=== PATIENT | male | born 1995 | race Caucasian/White ===

== ENCOUNTER 2018-09-09 10:56 | Emergency (ER) | payer OTHER ==
--- NOTE | 2018-09-09 11:27 | ERPHSYRPT ---
- History of Present Illness Time Seen by Provider: 09/09/18 11:23 Source: patient, police Exam Limitations: no limitations Patient Subjective Stated Complaint: suicidal Triage Nursing Assessment: Pt stated that he got into an argument with his girlfriend this morning and then was talking to his brother and stated that he wanted to kill his self, pt states that he feels this way anytime he gets angry , when he is calmed down he then thinks of ways of doing this although he has never acted upon it, he wishes to speak to a counselor, pt it disshevled, reports that he has quit drinking and that he doesn't do any drugs, pt is very cooperative and flat, vitals wnl, denies having any other issues Physician History: 23-year-old white male brought by [employer] with complaint of the patient apparently has been talking about harming himself. Patient apparently got in an argument with his girlfriend today and told his brother he wanted to harm himself he apparently has been thinking about harming himself off and on for some time he states he gets angry and even thinks about harming himself, Patient apparently thinks about harming himself while he is angry and then when he calms down he thinks about different ways she might harm himself. He states he's never attempted suicide in the past. Past medical history includes epilepsy as a child. Past surgical history includes myringotomy tubes. Social history is positive for tobacco use patient denies alcohol or illicit drug use. Timing/Duration: today Severity: moderate Modifying Factors: Improves With: other (patient an argument with girlfriend earlier) Associated Symptoms: No nausea, No vomiting, No abdominal pain, No shortness of breath, No heartburn, No diaphoresis, No cough, No chills, No chest pain, No fever, No headaches, No loss of appetite, No malaise, No rash, No syncope, No seizure, No weakness Allergies/Adverse Reactions: No Known Drug Allergies Allergy (Verified 09/09/18 11:12) Home Medications: No Reportable Medications [No Reported Medications] 09/09/18 [History] - Review of Systems Constitutional: No Fever, No Chills Eyes: No Symptoms Ears, Nose, & Throat: No Symptoms Respiratory: No Cough, No Dyspnea Cardiac: No Chest Pain, No Edema, No Syncope Abdominal/Gastrointestinal: No Abdominal Pain, No Nausea, No Vomiting, No Diarrhea Genitourinary Symptoms: No Dysuria Musculoskeletal: No Back Pain, No Neck Pain Skin: No Rash Neurological: No Dizziness, No Focal Weakness, No Sensory Changes Psychological: Suicidal Ideations, Emotional Lability, No Alcohol Abuse, No Drug Abuse, No Anxiety, No Homicidal Ideations, No Hallucinations, No Memory Loss, No Mood Changes Endocrine: No Symptoms All Other Systems: Reviewed and Negative - Past Medical History Pertinent Past Medical History: Yes Neurological History: Epilepsy Other Medical History: epilepsy as a child - Past Surgical History Past Surgical History: Yes Other Surgical History: tubes in ears - Social History Smoking Status: Current every day smoker How long have you smoked: 6 years Exposure to second hand smoke: Yes Drug Use: none Patient Lives Alone: No - Nursing Vital Signs Nursing Vital Signs: Initial Vital Signs Temperature 97.6 F 09/09/18 10:57 Pulse Rate 73 09/09/18 10:57 Respiratory Rate 12 09/09/18 10:57 Blood Pressure 134/84 09/09/18 10:57 O2 Sat by Pulse Oximetry 100 09/09/18 10:57 Pain Scale Pain Intensity 0 - Physical Exam General Appearance: no apparent distress, alert Eye Exam: PERRL/EOMI, eyes nml inspection Ears, Nose, Throat Exam: normal ENT inspection, TMs normal, pharynx normal, moist mucous membranes Neck Exam: normal inspection, non-tender, supple, full range of motion Respiratory Exam: normal breath sounds, lungs clear, No respiratory distress Cardiovascular Exam: regular rate/rhythm, normal heart sounds, normal peripheral pulses, capillary refill <2 sec Gastrointestinal/Abdomen Exam: soft, normal bowel sounds, No tenderness, No mass Back Exam: normal inspection, normal range of motion, No CVA tenderness, No vertebral tenderness Extremity Exam: normal inspection, normal range of motion, pelvis stable Neurologic Exam: alert, oriented x 3, cooperative, clarifier II-XII nml as tested, normal mood/affect, nml cerebellar function, nml station & gait, sensation nml, No motor deficits Skin Exam: normal color, warm, dry, No rash Lymphatic Exam: No adenopathy SpO2 Interpretation: normal (100%) SpO2: 100 - Course Nursing assessment & vital signs reviewed: Yes EKG Interpreted by Me: RATE (53 bpm), Sinus Rhythm, NORMAL AXIS, Other (EKG: Sinus rhythm., 53 bpm, normal axis, no acute ST or T wave changes, normal EKG) Ordered Tests: Active Orders 24 hr Category Date Time Status EKG-ER Only STAT Care 09/09/18 11:21 Active Psychiatric Consult STAT Cons 09/09/18 11:22 Active ACETAMINOPHEN Stat Lab 09/09/18 11:33 Completed CBC W DIFF Stat Lab 09/09/18 11:33 Completed CMP Stat Lab 09/09/18 11:33 Completed ETHYL ALCOHOL Stat Lab 09/09/18 11:33 Completed SALICYLATE Stat Lab 09/09/18 11:33 Completed UA W/RFX UR CULTURE Stat Lab 09/09/18 12:53 Completed Urine Triage Profile Stat Lab 09/09/18 12:53 Completed Medication Summary Discontinued Medications Generic Name Dose Route Start Last Admin Trade Name Freq PRN Reason Stop Dose Admin Nicotine 21 mg 09/09/18 17:30 09/09/18 17:34 Nicoderm Cq 21 Mg TOP 09/09/18 17:31 21 mg STAT ONE Administration Lab/Rad Data: Laboratory Result Diagrams 09/09/18 11:33 09/09/18 11:33 Laboratory Results 09/09/18 09/09/18 09/09/18 Range/Units 12:53 12:53 11:33 WBC (4.0-10.5) K/mm3 RBC (4.1-5.6) M/mm3 Hgb (12.5-18.0) gm/dl Hct (42-50) % MCV (78-100) fl MCH (26-32) pg MCHC (32-36) g/dl RDW (11.5-14.0) % Plt Count (150-450) K/mm3 MPV (6-9.5) fl Gran % (36.0-66.0) % Eos # (Auto) (0-0.5) Absolute Lymphs (auto) (1.0-4.6) Absolute Monos (auto) (0.0-1.3) Lymphocytes % (24.0-44.0) % Monocytes % (0.0-12.0) % Eosinophils % (0.00-5.0) % Basophils % (0.0-0.4) % Absolute Granulocytes (1.4-6.9) Basophils # (0-0.4) Sodium 142 (137-145) mmol/L Potassium 3.6 (3.5-5.1) mmol/L Chloride 105 (98-107) mmol/L Carbon Dioxide 25 (22-30) mmol/L Anion Gap 15.6 H (5-15) MEQ/L BUN 7 L (9-20) mg/dL Creatinine 0.73 (0.66-1.25) mg/dL Estimated GFR > 60.0 ML/MIN Glucose 118 H (74-106) mg/dL Calcium 9.3 (8.4-10.2) mg/dL Total Bilirubin 0.60 (0.2-1.3) mg/dL AST 20 (17-59) U/L ALT 14 (0-50) U/L Alkaline Phosphatase 64 (38-126) U/L Serum Total Protein 7.7 (6.3-8.2) g/dL Albumin 4.7 (3.5-5.0) g/dL Urine Color YELLOW (YELLOW) Urine Appearance SLIGHTLY CLOUDY (CLEAR) Urine pH 7.0 (5-6) Ur Specific Sumner 1.024 (1.005-1.025) Urine Protein 100 (Negative) Urine Ketones MODERATE (NEGATIVE) Urine Blood NEGATIVE (0-5) Erich/ul Urine Nitrite NEGATIVE (NEGATIVE) Urine Bilirubin NEGATIVE (NEGATIVE) Urine Urobilinogen 4 (0-1) mg/dL Ur Leukocyte Esterase NEGATIVE (NEGATIVE) Urine WBC (Auto) 3-5 (0-5) /HPF Urine RBC (Auto) NONE (0-2) /HPF U Hyaline Cast (Auto) 0-2 (0-2) /LPF U Epithel Cells (Auto) NONE (FEW) /HPF Urine Bacteria (Auto) RARE (NEGATIVE) /HPF Urine Mucus (Auto) MANY (NEGATIVE) /HPF Urine Culture Reflexed NO (NO) Urine Glucose NEGATIVE (NEGATIVE) mg/dL Salicylates < 1.0 L (2-20) mg/dL Urine Opiates Level NEGATIVE (NEGATIVE) Ur Methadone NEGATIVE (NEGATIVE) Acetaminophen < 10 L (10-30) ug/ml Urine Barbiturates NEGATIVE (NEGATIVE) Ur Phencyclidine (PCP) NEGATIVE (NEGATIVE) Urine Amphetamine NEGATIVE (NEGATIVE) U Benzodiazepine Level NEGATIVE (NEGATIVE) Urine Cocaine NEGATIVE (NEGATIVE) Urine Marijuana (THC) NEGATIVE (NEGATIVE) Ethyl Alcohol < 10 (0-10) mg/dL 09/09/18 Range/Units 11:33 WBC 11.4 H (4.0-10.5) K/mm3 RBC 4.52 (4.1-5.6) M/mm3 Hgb 13.8 (12.5-18.0) gm/dl Hct 43.0 (42-50) % MCV 95.1 (78-100) fl MCH 30.5 (26-32) pg MCHC 32.1 (32-36) g/dl RDW 14.7 H (11.5-14.0) % Plt Count 194 (150-450) K/mm3 MPV 11.1 H (6-9.5) fl Gran % 68.8 H (36.0-66.0) % Eos # (Auto) 0.11 (0-0.5) Absolute Lymphs (auto) 2.78 (1.0-4.6) Absolute Monos (auto) 0.61 (0.0-1.3) Lymphocytes % 24.4 (24.0-44.0) % Monocytes % 5.4 (0.0-12.0) % Eosinophils % 1.0 (0.00-5.0) % Basophils % 0.4 (0.0-0.4) % Absolute Granulocytes 7.84 H (1.4-6.9) Basophils # 0.04 (0-0.4) Sodium (137-145) mmol/L Potassium (3.5-5.1) mmol/L Chloride (98-107) mmol/L Carbon Dioxide (22-30) mmol/L Anion Gap (5-15) MEQ/L BUN (9-20) mg/dL Creatinine (0.66-1.25) mg/dL Estimated GFR ML/MIN Glucose (74-106) mg/dL Calcium (8.4-10.2) mg/dL Total Bilirubin (0.2-1.3) mg/dL AST (17-59) U/L ALT (0-50) U/L Alkaline Phosphatase (38-126) U/L Serum Total Protein (6.3-8.2) g/dL Albumin (3.5-5.0) g/dL Urine Color (YELLOW) Urine Appearance (CLEAR) Urine pH (5-6) Ur Specific Sumner (1.005-1.025) Urine Protein (Negative) Urine Ketones (NEGATIVE) Urine Blood (0-5) Erich/ul Urine Nitrite (NEGATIVE) Urine Bilirubin (NEGATIVE) Urine Urobilinogen (0-1) mg/dL Ur Leukocyte Esterase (NEGATIVE) Urine WBC (Auto) (0-5) /HPF Urine RBC (Auto) (0-2) /HPF U Hyaline Cast (Auto) (0-2) /LPF U Epithel Cells (Auto) (FEW) /HPF Urine Bacteria (Auto) (NEGATIVE) /HPF Urine Mucus (Auto) (NEGATIVE) /HPF Urine Culture Reflexed (NO) Urine Glucose (NEGATIVE) mg/dL Salicylates (2-20) mg/dL Urine Opiates Level (NEGATIVE) Ur Methadone (NEGATIVE) Acetaminophen (10-30) ug/ml Urine Barbiturates (NEGATIVE) Ur Phencyclidine (PCP) (NEGATIVE) Urine Amphetamine (NEGATIVE) U Benzodiazepine Level (NEGATIVE) Urine Cocaine (NEGATIVE) Urine Marijuana (THC) (NEGATIVE) Ethyl Alcohol (0-10) mg/dL - Progress Progress: improved Progress Note: 09/09/18 17:38 Patient is interviewed by [facility] personnel. He has been accepted to [facility] as the accepting physician. - Departure Time of Disposition: 17:38 Departure Disposition: Transfer ([facility]) Clinical Impression: Suicidal ideation Condition: Fair Critical Care Time: No
[2018-09-09 11:38] LABS: BASOPHIL % 0.4 % (0.0-0.4); Basophil (Absolute #) 0.04 (0-0.4); Eosinophil (Absolute #) 0.11 (0-0.5); Granulocyte Absolute (ANC) 7.84 (1.4-6.9); Granulocytes % 68.8 % (36.0-66.0); Hemoglobin 13.8 gm/dl (12.5-18.0); Lymphocyte (Absolute #) 2.78 (1.0-4.6); Lymphocytes % 24.4 % (24.0-44.0); Mean Cell Volume 95.1 fl (78-100); Mean Corpuscular Hemoglobin 30.5 pg (26-32); Mean Corpuscular Hgb Concent. 32.1 g/dl (32-36); Mean Platelet Volume 11.1 fl (6-9.5); Monocyte (Absolute #) 0.61 (0.0-1.3); Monocytes % 5.4 % (0.0-12.0); Platelet Count 194 K/mm3 (150-450); Red Blood Count 4.52 M/mm3 (4.1-5.6); Red Cell Distribution Width 14.7 % (11.5-14.0); White Blood Count 11.4 K/mm3 (4.0-10.5)
[2018-09-09 11:46] LABS: ALBUMIN 4.7 g/dL (3.5-5.0); ALKALINE PHOSPHATASE 64 U/L (38-126); ANION GAP 15.6 MEQ/L (5-15); BLOOD UREA NITROGEN 7 mg/dL (9-20); CHLORIDE 105 mmol/L (98-107); Calcium 9.3 mg/dL (8.4-10.2); Carbon Dioxide 25 mmol/L (22-30); Creatinine 1 0.73 mg/dL (0.66-1.25); Glucose 118 mg/dL (74-106); Potassium 3.6 mmol/L (3.5-5.1); SGOT/AST 20 U/L (17-59); SGPT/ALT 14 U/L (0-50); SODIUM 142 mmol/L (137-145); Total Protein 7.7 g/dL (6.3-8.2)
[2018-09-09 11:47] LABS: ETHYL ALCOHOL < 10 mg/dL (0-10); SALICYLATE < 1.0 mg/dL (2-20)
[2018-09-09 11:53] LABS: ACETAMINOPHEN < 10 ug/ml (10-30)
[2018-09-09 13:04] LABS: Appearance SLIGHTLY CLOUDY (CLEAR); Bacteria RARE /HPF (NEGATIVE); Bilirubin NEGATIVE (NEGATIVE); Blood NEGATIVE Ery/ul (0-5); Glucose NEGATIVE (NEGATIVE); Hyaline Casts 0-2 /LPF (0-2); Ketones MODERATE (NEGATIVE); Leukocyte Esterase NEGATIVE (NEGATIVE); Mucus MANY /HPF (NEGATIVE); Nitrite NEGATIVE (NEGATIVE); Protein,Urine Dip 100 (Negative); Specific Gravity 1.024 (1.005-1.025); Urobilinogen 4 mg/dL (0-1)
[2018-09-09 13:27] LABS: Amphetamine,Urine NEGATIVE (NEGATIVE); Barbiturate,Urine NEGATIVE (NEGATIVE); Benzodiazepine,Urine NEGATIVE (NEGATIVE); Cocaine,Urine NEGATIVE (NEGATIVE); Methadone,Urine NEGATIVE (NEGATIVE); Opiate,Urine NEGATIVE (NEGATIVE); PCP,Urine NEGATIVE (NEGATIVE); THC,Urine NEGATIVE (NEGATIVE)
[2018-09-09] MEDS ORDERED: Nicoderm CQ 21 MG TOP ONE (17:30)
[2018-09-09 18:03] VITALS: BP 126/80; PULSE 68; O2SAT 99
== END 2018-09-09 18:50 | disposition short-term general hospital (02) ==
LOC: ED 10:56
DX: R45.851 Suicidal ideations (principal)
CPT/HCPCS: 36415; 80053; 80307; 81001; 85025; 90791; 93005; 99285; G0481; Q3014; A9270-GY; G0480

== ENCOUNTER 2019-02-28 18:32 | Emergency (ER) | payer OTHER ==
[2019-02-28 18:48] VITALS: BP 137/80; PULSE 88; O2SAT 97
== END 2019-02-28 19:20 | disposition left against medical advice (07) ==
LOC: ED 18:32
DX: N50.811 Right testicular pain (principal); N50.89 Other specified disorders of the male genital organs
CPT/HCPCS: 99283; G0463

== ENCOUNTER 2024-03-31 22:53 | Emergency (ER) | payer SELFPAY ==
[2024-03-31 23:06] VITALS: TEMP 98.7
[2024-04-01 00:03] VITALS: O2SAT 98
[2024-04-01 00:03] LABS: INFLUENZA A NEGATIVE (NEGATIVE); INFLUENZA B NEGATIVE (NEGATIVE); RESPIRATORY SYNCTIAL VIRUS NEGATIVE (NEGATIVE); SARS-CoV-2 Xpert Express NEGATIVE (NEGATIVE)
--- NOTE | 2024-04-01 00:24 | ERPHSYRPT ---
- History of Present Illness Time Seen by Provider: 03/31/24 23:30 Source: patient Exam Limitations: no limitations Patient Subjective Stated Complaint: head and nasal congestion Triage Nursing Assessment: Pt ambulated into ER without diff, sig other at bedside. Pt c/o head and nasal congestion x2 weeks, prod cough with yellowish- springer sputum, headache. Pt is afebrile, pt denies any chest pain but feels sob at times. Pt feels worse when laying down, has trouble swallowing. Lungs clear, heart tones reg. Pt smokes 1.5 ppd x 15 yrs. Physician History: 29-year-old male presents to our ED for evaluation of cough nasal congestion x 2 weeks. Patient reports a productive cough of yellow-green sputum. Patient states he feels congested and has observed drainage out of both ears. Patient is hard of hearing due to ear infections as a child. No chest pain or shortness of breath. No nausea vomiting or diaphoresis. Patient reports some chest tightness when he coughs only. Patient does not have a primary care doctor to follow-up with. 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 No other significant past medical history. Patient otherwise feels well and voices no other complaints. Portions of this note were created with voice recognition technology. There may be grammatical, spelling, punctuation or sound alike errors Timing/Duration: week(s) (2 weeks) Severity: moderate Modifying Factors: Improves With: nothing Associated Symptoms: denies symptoms Allergies/Adverse Reactions: No Known Drug Allergies Allergy (Verified 03/31/24 23:14) Hx Tetanus, Diphtheria Vaccination/Date Given: Yes Hx Influenza Vaccination/Date Given: No Hx Pneumococcal Vaccination/Date Given: No Travel Risk - International Travel Have you traveled outside of the country in past 3 weeks: No - Emerging Infectious Disease Are you exhibiting symptoms associated with any current EIDs: Yes Symptoms: Headaches/Body Aches/ - Review of Systems Constitutional: No Symptoms, No Fever, No Chills Eyes: No Symptoms Ears, Nose, & Throat: No Symptoms Respiratory: No Symptoms, No Cough, No Dyspnea Cardiac: No Symptoms, No Chest Pain, No Edema, No Syncope Abdominal/Gastrointestinal: No Symptoms, No Abdominal Pain, No Nausea, No Vomiting, No Diarrhea Genitourinary Symptoms: No Symptoms, No Dysuria Musculoskeletal: No Symptoms, No Back Pain, No Neck Pain Skin: No Symptoms, No Rash Neurological: No Symptoms, No Dizziness, No Focal Weakness, No Sensory Changes Psychological: No Symptoms Endocrine: No Symptoms Hematologic/Lymphatic: No Symptoms Immunological/Allergic: No Symptoms All Other Systems: Reviewed and Negative - Past Medical History Pertinent Past Medical History: Yes Neurological History: Epilepsy Other Medical History: epilepsy as a child - Past Surgical History Past Surgical History: Yes Other Surgical History: tubes in ears - Social History Smoking Status: Current every day smoker How long have you smoked: 15 yrs Exposure to second hand smoke: Yes Drug Use: none Patient Lives Alone: No - Social Determinants of Health Will the patient participate in the screening: Yes Do you worry about a steady place to live?: No Do you have any problems with any of the following?: No known problems In the past 12 months,have you had to go without utilities?: No Transportation Issues: No Has anyone in your support network made you feel unsafe?: No Have you or anyone in your house had to go without enough: No - Nursing Vital Signs Nursing Vital Signs: Initial Vital Signs Temperature 98.7 F 03/31/24 23:04 Pulse Rate 100 H 03/31/24 23:04 Respiratory Rate 18 03/31/24 23:04 Blood Pressure 152/92 03/31/24 23:04 O2 Sat by Pulse Oximetry 97 03/31/24 23:04 Pain Scale Pain Intensity 0 - Physical Exam General Appearance: no apparent distress, alert Eye Exam: PERRL/EOMI, eyes nml inspection Ears, Nose, Throat Exam: normal ENT inspection, TMs normal, pharynx normal, moist mucous membranes, other (Nasal congestion) Neck Exam: normal inspection, non-tender, supple, full range of motion Respiratory Exam: normal breath sounds, lungs clear, No respiratory distress Cardiovascular Exam: regular rate/rhythm, normal heart sounds, normal peripheral pulses Gastrointestinal/Abdomen Exam: soft, normal bowel sounds, No tenderness, No mass Back Exam: normal inspection, normal range of motion, No CVA tenderness, No vertebral tenderness Extremity Exam: normal inspection, normal range of motion, pelvis stable Neurologic Exam: alert, oriented x 3, cooperative, normal mood/affect, nml cerebellar function, nml station & gait, sensation nml, No motor deficits Skin Exam: normal color, warm, dry, No rash Lymphatic Exam: No adenopathy SpO2 Interpretation: normal SpO2: 98 O2 Delivery: Room Air - Course Nursing assessment & vital signs reviewed: Yes Ordered Tests: Active Orders 24 hr Category Date Time Status CHEST 1 VIEW (PORTABLE) Stat Exams 03/31/24 23:17 Completed Medication Summary Discontinued Medications Generic Name Dose Route Start Last Admin Trade Name Lissa PRN Reason Stop Dose Admin Amoxicillin/Clavulanate Potassium 875 mg 04/01/24 00:30 04/01/24 00:36 Amox Tr/Potassium Clavulanate 875 Mg Tablet PO 04/01/24 00:31 875 mg STAT ONE Administration Amoxicillin/Clavulanate Potassium Confirm 04/01/24 00:33 Amox Tr/Potassium Clavulanate 875 Mg Tablet Administered 04/01/24 00:34 Dose 875 mg .ROUTE .STK-MED ONE Dexamethasone Sodium Phosphate 8 mg 04/01/24 00:30 04/01/24 00:39 Dexamethasone Sod Phosphate 10 Mg/Ml IM 04/01/24 00:31 8 mg STAT ONE Administration Dexamethasone Sodium Phosphate Confirm 04/01/24 00:33 Dexamethasone Sod Phosphate 10 Mg/Ml Administered 04/01/24 00:34 Dose 10 mg .ROUTE .STK-MED ONE Lab/Rad Data: Laboratory Results 03/31/24 03/31/24 Range/Units 23:20 23:20 Influenza Type A Ag NEGATIVE (NEGATIVE) Influenza Type B Ag NEGATIVE (NEGATIVE) RSV (PCR) NEGATIVE (NEGATIVE) SARS-CoV-2 (PCR) NEGATIVE (NEGATIVE) Group A Strep Antibody NOT DETECTED (NEGATIVE) - Progress Progress: improved Progress Note: 29-year-old male presents to our ED for evaluation of productive cough nasal congestion. Patient is a smoker. Physical exam reveals nasal congestion. EKG reveals normal sinus rhythm. Chest x-ray indicative of bronchitis. Rapid strep negative. Influenza RSV COVID-negative. Patient symptoms have been ongoing for 2 weeks. In light of the symptomology patient received a dose of Decadron and Augmentin. A prescription for Augmentin forwarded to patient's pharmacy. Patient does not have a primary care doctor to follow-up with. Patient given referral to Dr. Morales. Patient agrees to follow-up within 48 hours for evaluation. Significant other at bedside. They voiced no other complaints or concerns at this time. Portions of this note were created with voice recognition technology. There may be grammatical, spelling, punctuation or sound alike errors Complexity of problem addressed is moderate acute complicated. No critical care time. Complex of data reviewed and analyzed is moderate. Test ordered test reviewed results analyzed and correlated clinically with history and physical exam. Risk of complication and or risk of morbidity/mortality patient management is moderate. Patient received Decadron in our ED. A prescription for Augmentin forwarded to patient's pharmacy. Vital stable. Time spent to discharge patient approximately 20 minutes. Plan of care established for shared decision making. No social determinants of health present to impede follow-up. Portions of this note were created with voice recognition technology. There may be grammatical, spelling, punctuation or sound alike errors 04/01/24 00:38 Counseled pt/family regarding: lab results, diagnosis, need for follow-up, rad results - Departure Departure Disposition: Home Clinical Impression: Productive cough, Sinusitis, Bronchitis Condition: Stable Critical Care Time: No Referrals: DOCTOR,NO FAMILY [Primary Care Provider] - Follow up/PCP as directed KIKO MORALES MD [ACTIVE STAFF] - Follow up/PCP as directed Instructions: Sinusitis, Adult (DC) Additional Instructions: Discharge/Care Plan MARGA BILLINGSLEY was seen on 04/01/24 in the Emergency Room. The patient was counseled regarding Diagnosis,Lab results, Imaging studies, need for follow up and when to return to the Emergency Room. Prescriptions given: Discharge Note I have spoken with the patient and/or caregivers. I have explained the patient's condition, diagnosis and treatment plan based on the information available to me at this time. I have answered the patient's and/or caregiver's questions and addressed any concerns. The patient and/or caregivers have as good understanding of the patient's diagnosis, condition and treatment plan as can be expected at this point. The vital signs have been stable. The patient's condition is stable and appropriate for discharge from the emergency department. The patient will pursue further outpatient evaluation with the primary care physician or other designated or consulting physician as outlined in the discharge instructions. The patient and/or caregivers are agreeable to this plan of care and follow-up instructions have been explained in detail. The patient and/or caregivers have received these instruction. The patient/and or caregivers are aware that any significant change in condition or worsening of symptoms should prompt an immediate return to this or the closest emergency department or call 911. Prescriptions: Amox Tr/Potass Clav. 875 mg [Augmentin 875-125 Tablet] 875 mg PO BID 7 Days #14 tablet
[2024-04-01] MEDS ORDERED: DECADRON 10MG INJ. ONE (00:33)
[2024-04-01] MEDS ORDERED: Augmentin 875-125 Tablet ONE (00:33)
[2024-04-01] MEDS: Augmentin 875-125 Tablet PO ONE (00:36)
[2024-04-01] MEDS: DECADRON 10MG INJ. IM ONE (00:39)
--- NOTE | 2024-04-01 01:11 | XRAY ---
CLINICAL HISTORY: cough/sob COMPARISON: No prior studies available for comparison. TECHNIQUE: X-ray images of the chest were obtained in AP portable projection. FINDINGS: Pulmonary Parenchyma: Prominence of bilateral michael with perihilar interstitial markings, possibly denoting bronchovascular congestion versus bronchitic changes. No evidence of consolidation, collapse, or focal opacities. No pulmonary nodules identified. No evidence of pleural effusion or pleural thickening. Heart and Mediastinum: Heart size and shape are normal. No mediastinal widening or masses. No hilar or mediastinal lymphadenopathy. Bony Thorax: Bony thorax appears intact without fractures or deformities. Soft Tissues: Soft tissues overlying the chest wall are unremarkable. IMPRESSION: 1. Prominence of bilateral michael with perihilar interstitial markings, possibly denoting bronchovascular congestion versus bronchitic changes. 2. No focal consolidation or pleural effusion. Electronically Signed by: Camilla Solares MD. (04/01/2024 01:06:23 EDT)
[2024-04-01 01:24] VITALS: BP 130/94; PULSE 102; RESP 18
== END 2024-04-01 01:40 | disposition home or self-care (01) ==
LOC: ED 22:53
DX: J40 Bronchitis, not specified as acute or chronic (principal); J32.9 Chronic sinusitis, unspecified; R05.1 Acute cough; R09.81 Nasal congestion; Z79.899 Other long term (current) drug therapy; Z72.0 Tobacco use
CPT/HCPCS: 0241U; 71045; 87651; 93005; 96372; 99284; J1100; A9270-GY